=== PATIENT | female | born 1975 | race Two or more races ===

== ENCOUNTER 2023-12-09 08:54 | Outpatient (REF) | payer OTHER, SELFPAY ==
[2023-12-09 14:12] LABS: MANUAL DIFF FLAG NO
[2023-12-09 14:15] LABS: Basophils Absolute Auto 0.1 X10*3/uL (0.0-0.2); Basophils Percent Auto 0.7 % (0-2); Eosinophils Absolute Auto 0.2 X10*3/uL (0.0-0.4); Eosinophils Percent Auto 2.8 % (0-4); Hematocrit 40.9 % (37.0-47.0); Hemoglobin 13.8 g/dl (12.0-16.0); Imm Gran Abs Auto 0.03 X10*3/uL (0.00-0.03); Imm Gran Pct Auto 0.4 % (0.0-0.4); Lymphocytes Absolute Auto 2.4 X10*3/uL (1.2-4.9); Lymphocytes Percent Auto 33.1 % (20-40); Mean Corpuscular HGB Conc 33.7 g/dl (31.0-35.0); Mean Corpuscular Hemoglobin 29.9 pg (27.0-33.0); Mean Corpuscular Volume 88.7 fL (80.0-98.0); Mean Platelet Volume 10.4 fL (9.4-12.3); Monocytes Absolute Auto 0.6 X10*3/uL (0.1-1.2); Monocytes Percent Auto 8.2 % (2-11); Neutrophils Absolute Auto 3.9 x10*3/uL (2.0-8.3); Neutrophils Percent Auto 54.8 % (45-73); Platelet Count 330 X10*3/uL (160-400); Red Blood Count 4.61 X10*6/uL (4.20-5.50); Red Cell Distribution Width 12.9 % (11.0-16.0); White Blood Count 7.2 X10*3/uL (4.8-10.8)
[2023-12-09 14:55] LABS: Erythrocyte Sedimentation Rate 10 MM/HR (0-20)
[2023-12-09 15:02] LABS: Alanine Aminotransferase 13 U/L (0-31); Albumin Level 3.9 g/dL (3.5-5.0); Alkaline Phosphatase 71 U/L (39-117); Anion Gap 13 (12-20); Aspartate Amino Transferase 15 U/L (5-31); Bilirubin Total 1.7 mg/dL (0.0-1.0); Blood Urea Nitrogen 9 mg/dL (9-16); C Reactive Protein 0.17 mg/dL (< or = 0.50); Calcium 9.1 mg/dL (8.4-10.2); Carbon Dioxide 23 mmol/L (22-29); Chloride 107 mmol/L (96-108); Cholesterol 192 mg/dL (<200); Estimated Glomerular Filt Rate > 60; Glucose Random 70 mg/dL (60-115); HDL Cholesterol 51 mg/dL (>40); LDL Cholesterol Calculated 122 mg/dL (<100); Potassium 3.3 mmol/L (3.3-5.1); Sodium 140 mmol/L (135-145); Total Protein 6.9 g/dL (6.5-8.0); Triglycerides 99 mg/dL (<150)
[2023-12-09 15:14] LABS: Rheumatoid Factor < 13.0 IU/mL (<15.0)
[2023-12-09 15:20] LABS: TSH reflex Free T4 2.03 uIU/mL (0.32-4.0)
[2023-12-12 15:39] LABS: Cyclic Citrullinated Peptide <16 UNITS
[2023-12-13 14:09] LABS: Anti Nuclear Antibody Screen NEGATIVE (NEGATIVE)
== END 2023-12-09 08:55 | disposition home or self-care (01) ==
LOC: HO.CHCLDS 08:54
PROVIDERS: Visit Provider Family Medicine
DX: E66.3 Overweight (principal); M25.50 Pain in unspecified joint
CPT/HCPCS: 36415; 80053; 80061; 84443; 85025; 85652; 86038; 86140; 86200; 86431